=== PATIENT | male | born 1985 | race Caucasian/White ===

== ENCOUNTER 2018-01-21 12:45 | Emergency (ER) | payer OTHER | END 2018-01-21 15:23 | disposition home or self-care (01) | LOC: FTE 12:45 | DX: S40.022A Contusion of left upper arm, initial encounter (principal); W18.39XA Other fall on same level, initial encounter; Y92.9 Unspecified place or not applicable | CPT/HCPCS: 73080; 73080-LT; 73550; 73562; 99284-25 ==